=== PATIENT | female | born 1995 | race African-American/Black ===

== ENCOUNTER 2018-03-25 18:18 | Emergency (ER) | payer SELFPAY ==
--- NOTE | 2018-03-25 19:28 | ER Document Report ---
ED Medical Screen (RME) - General Chief Complaint: Abdominal Pain Stated Complaint: ABDOMINAL PAIN Time Seen by Provider: 03/25/18 19:17 Notes: RAPID MEDICAL EVALUATION DISCLOSURE I have seen this patient as part of a Rapid Medical Evaluation and, if applicable, placed any initially appropriate orders. The patient will be seen and fully evaluated, including a full history and physical exam, by a provider ( in Main ED or Fast Track) when a room becomes available. 23-year-old female here with complaints of lower abdominal pain and nausea ongoing for the past few days as well as left lower back pain worse with movement and improved with minimizing movement. The low back pain radiates down her left leg and is consistent with the daily sciatica that she has had for the last 3 years. She reports that it feels like she has to use the bathroom frequently and that she may have a UTI but denies dysuria. EXAM Suprapubic TTP Left sciatic notch TTP Left paralumbar muscl TTP TRAVEL OUTSIDE OF THE [place] IN LAST 30 DAYS: No - Related Data Allergies/Adverse Reactions: acetaminophen [From Vicodin] Allergy (Verified 03/25/18 18:21) hydrocodone [From Vicodin] Allergy (Verified 03/25/18 18:21) Past Medical History - Social History Frequency of alcohol use: None Renal/ Medical History: Denies: Hx Peritoneal Dialysis Physical Exam - Vital signs Vitals: Temp Pulse Resp BP Pulse Ox 98.7 F 83 18 118/74 98 03/25/18 18:23 03/25/18 18:23 03/25/18 18:23 03/25/18 18:23 03/25/18 18:23 Course - Vital Signs Vital signs: Temp Pulse Resp BP Pulse Ox 98.7 F 83 18 118/74 98 03/25/18 18:23 03/25/18 18:23 03/25/18 18:23 03/25/18 18:23 03/25/18 18:23
[2018-03-25 20:22] LABS: APPEARANCE,URINE SLIGHTLY-CLOUDY; BILIRUBIN,URINE NEGATIVE (NEGATIVE); COLOR,URINE YELLOW; GLUCOSE, URINE NEGATIVE (NEGATIVE); KETONES,URINE NEGATIVE (NEGATIVE); LEUKOCYTE ESTERASE,URINE LARGE (NEGATIVE); NITRITE,URINE NEGATIVE (NEGATIVE); PROTEIN,URINE NEGATIVE (NEGATIVE); URINE SPECIFIC GRAVITY 1.019; UROBILINOGEN,URINE NEGATIVE mg/dL (<2.0)
[2018-03-25] MEDS ORDERED: CEPHALEXIN 500 MG CAPSULE PO ONE (20:32)
[2018-03-25] MEDS ORDERED: OXYCODONE-ACETAMINOPHEN 5-325 MG TABLET PO ONE (20:32)
[2018-03-25] MEDS ORDERED: PHENAZOPYRIDINE HCL 200 MG TABLET PO ONE (20:32)
--- NOTE | 2018-03-25 20:36 | ER Document Report ---
HPI - HPI Patient complains to provider of: Low back pain, urinary symptoms Onset: Other - 2 days Onset/Duration: Persistent Quality of pain: Achy Pain Level: 5 Context: Patient states she is here visiting from out of town. Patient complains of a flareup of her chronic sciatica over the past few days. Patient also reports lower abdominal pain with urinary frequency. Patient does report diarrhea 6 episodes. Patient denies any fever, nausea or vomiting. Patient does return home in 4 days. Patient states that she may have eaten foods that she is not used to which is triggering her diarrhea. Associated Symptoms: Diarrhea, Other - Low back pain, urinary frequency. denies : Fever, Nausea, Vomiting Exacerbated by: Movement Relieved by: Denies Similar symptoms previously: Yes Recently seen / treated by doctor: No - ROS ROS below otherwise negative: Yes Systems Reviewed and Negative: Yes All other systems reviewed and negative - CONSTITUTIONAL Constitutional: DENIES: Fever - CARDIOVASCULAR Cardiovascular: DENIES: Chest pain - RESPIRATORY Respiratory: DENIES: Trouble Breathing - GASTROINTESTINAL Gastrointestinal: REPORTS: Abdominal Pain, Diarrhea. DENIES: Nausea, Patient vomiting - URINARY Urinary: REPORTS: Dysuria, Frequency - REPRODUCTIVE LMP: 02/28/18 - MUSCULOSKELETAL Musculoskeletal: REPORTS: Back Pain. DENIES: Extremity pain - DERM Skin Color: Normal Skin Problems: None Past Medical History - General Information source: Patient - Social History Smoking Status: Current Every Day Smoker Smoking Education Provided: Yes Frequency of alcohol use: None Drug Abuse: None Occupation: technology teacher Family History: Reviewed & Not Pertinent Patient has suicidal ideation: No Patient has homicidal ideation: No Pulmonary Medical History: Reports: Hx Asthma Renal/ Medical History: Reports: Hx Ovarian Cysts. Denies: Hx Peritoneal Dialysis Musculoskeltal Medical History: Reports Other - Sciatica Past Surgical History: Reports: Hx Section, Hx Cholecystectomy Vertical Provider Document - CONSTITUTIONAL Agree With Documented VS: Yes Exam Limitations: No Limitations General Appearance: WD/WN, No Apparent Distress - INFECTION CONTROL TRAVEL OUTSIDE OF THE [place] IN LAST 30 DAYS: No - HEENT HEENT: Atraumatic, Normocephalic - NECK Neck: Normal Inspection - RESPIRATORY Respiratory: Breath Sounds Normal, No Respiratory Distress - CARDIOVASCULAR Cardiovascular: Regular Rate, Regular Rhythm - GI/ABDOMEN Gastrointestinal: Abdomen Soft, Abdomen Tender - BACK Back: Abnormal Inspection - Suprapubic left lumbar paraspinal tenderness, left sciatic notch tenderness.. negative: CVA Tenderness-Right, CVA Tenderness-Left Notes: No midline tenderness, step-off or deformity - MUSCULOSKELETAL/EXTREMETIES Musculoskeletal/Extremeties: MAEW, FROM, Non-Tender - NEURO Level of Consciousness: Awake, Alert, Appropriate Motor/Sensory: No Motor Deficit Notes: No footdrop, no saddle anesthesia - DERM Integumentary: Warm, Dry, No Rash Course - Re-evaluation Re-evalutation: 03/25/18 20:33 The patient presents with low back pain without signs of spinal cord compression , cauda equina syndrome, infection, aneurysm, or other serious etiology. The patient is neurologically intact. Given the extremely risk of these diagnoses further testing and evaluation for these possibilities does not appear to be indicated at this time. Patient has been instructed to return if the symptoms worsen or change in any way. - Vital Signs Vital signs: Temp Pulse Resp BP Pulse Ox 98.7 F 83 18 118/74 98 03/25/18 18:23 03/25/18 18:23 03/25/18 18:23 03/25/18 18:23 03/25/18 18:23 - Laboratory Laboratory results interpreted by me: 03/25/18 19:28 Urine Blood MODERATE H Ur Leukocyte Esterase LARGE H Discharge - Discharge Clinical Impression: UTI (urinary tract infection) Qualifiers: Urinary tract infection type: site unspecified Hematuria presence: with hematuria Qualified Code(s): N39.0 - Urinary tract infection, site not specified Sciatica Qualifiers: Laterality: left Qualified Code(s): M54.32 - Sciatica, left side Diarrhea Qualifiers: Diarrhea type: unspecified type Qualified Code(s): R19.7 - Diarrhea, unspecified Condition: Stable Disposition: HOME, SELF-CARE Instructions: Cephalexin ([facility]), Diarrhea, Nonspecific ([facility]), Sciatica ([facility]), Urinary Anesthetic Agent ([facility]), Urinary Tract Infection ([facility]) Additional Instructions: Return immediately for any new or worsening symptoms Followup with your primary care provider, call tomorrow to make a followup appointment Prescriptions: Cephalexin Monohydrate [Keflex 500 mg Capsule] 500 mg PO Q6H 7 Days capsule Cyclobenzaprine HCl [Flexeril 10 Mg Tablet] 10 mg PO TID #15 tablet Oxycodone HCl/Acetaminophen [Percocet 5-325 mg Tablet] 1 tab PO ASDIR PRN #15 tablet PRN Reason: Phenazopyridine HCl [Pyridium 200 mg Tablet] 200 mg PO TID #15 tablet Forms: Smoking Cessation Education Referrals: [facility] [Provider Group] - Follow up as needed
[2018-03-25 21:01] VITALS: BP 118/70
== END 2018-03-25 21:00 | disposition home or self-care (01) ==
LOC: ER 18:18
DX: N39.0 Urinary tract infection, site not specified (principal); M54.32 Sciatica, left side; R19.7 Diarrhea, unspecified; M54.5 Low back pain; F17.210 Nicotine dependence, cigarettes, uncomplicated
CPT/HCPCS: 99283; 87086; 81025; 87088; 81001; 87186; J3490

== ENCOUNTER 2019-10-17 22:50 | Emergency (ER) | payer OTHER ==
--- NOTE | 2019-10-17 23:45 | ER Document Report ---
ED Medical Screen (RME) - General Chief Complaint: Pelvic Pain Stated Complaint: ABDOMINAL PAIN Time Seen by Provider: 10/17/19 23:42 Notes: HPI: 24-year-old female presenting for left pelvic pain for 2 weeks. Patient also reports vaginal discharge and odor for 2 weeks. Patient is concerned she has vaginitis. Patient is concerned she might have an ovarian cyst. No fever. Has had some intermittent nausea or vomiting at times. Reports a sensation of urinary urgency and discomfort. Denies back pain. Denies upper abdominal pain. Patient states that she believes she has had pelvic symptoms off and on for the last 4 months since she had an IUD removed by her SHOW DOG TRAINER who is not local I have greeted and performed a rapid initial assessment of this patient. A comprehensive ED assessment and evaluation of the patient, analysis of test results and completion of the medical decision making process will be conducted by additional ED providers PHYSICAL EXAMINATION: GENERAL: Well-appearing, well-nourished and in no acute distress. HEAD: Atraumatic, normocephalic. EYES: sclera anicteric, conjunctiva are normal. ENT: Moist mucous membranes. NECK: Normal range of motion LUNGS: Normal work of breathing HEART: 2+ radial pulses bilaterally ABD: limited by positioning for exam in triage. Mild tenderness low in the left pelvis on palpation EXTREMITIES: no pitting or edema. No cyanosis. NEUROLOGICAL: No focal neurological deficits. Moves all extremities spontaneously and on command. PSYCH: Normal mood, normal affect. SKIN: Warm, Dry, normal turgor, no rashes or lesions noted. TRAVEL OUTSIDE OF THE [place] IN LAST 30 DAYS: No - Related Data Allergies/Adverse Reactions: acetaminophen [From Vicodin] Allergy (Verified 03/25/18 18:21) hydrocodone [From Vicodin] Allergy (Verified 03/25/18 18:21) Past Medical History Pulmonary Medical History: Reports: Hx Asthma Renal/ Medical History: Reports: Hx Ovarian Cysts. Denies: Hx Peritoneal Dialysis Past Surgical History: Reports: Hx Section, Hx Cholecystectomy Physical Exam - Vital signs Vitals: Temp Pulse Resp BP Pulse Ox 98.5 F 73 16 136/63 H 99 10/17/19 23:13 10/17/19 23:13 10/17/19 23:13 10/17/19 23:13 10/17/19 23:13 Course - Vital Signs Vital signs: Temp Pulse Resp BP Pulse Ox 98.5 F 73 16 136/63 H 99 10/17/19 23:13 10/17/19 23:13 10/17/19 23:13 10/17/19 23:13 10/17/19 23:13
[2019-10-18 00:21] LABS: ABSOLUTE BASOPHILS # (AUTO) 0.1 10^3/uL (0.0-0.2); ABSOLUTE EOSINOPHILS # (AUTO) 0.5 10^3/uL (0.0-0.6); ABSOLUTE LYMPHOCYTES (AUTO) 4.9 10^3/uL (0.5-4.7); ABSOLUTE MONOCYTES (AUTO) 0.6 10^3/uL (0.1-1.4); ABSOLUTE NEUT (AUTO) 3.9 10^3/uL (1.7-8.2); BASOPHILS % (AUTO) 1.2 % (0-2); EOSINOPHILS % (AUTO) 5.3 % (0-6); HEMATOCRIT 39.4 % (36.0-47.0); HEMOGLOBIN 12.9 g/dL (12.0-15.5); MEAN CORPUSCULAR HEMOGLOBIN 28.5 pg (27.0-33.4); MEAN CORPUSCULAR HGB CONC 32.7 g/dL (32.0-36.0); MEAN CORPUSCULAR VOLUME 87 fl (80-97); MONOCYTES % (AUTO) 5.7 % (3-13); PLATELET COUNT 303 10^3/uL (150-450); RED BLOOD COUNT 4.52 10^6/uL (3.72-5.28); RED CELL DISTRIBUTION WIDTH 12.8 % (11.5-14.0); SEGMENTED NEUTROPHILS % (AUTO) 38.8 % (42-78); TOTAL CELLS COUNTED % (AUTO) 100 %; WHITE BLOOD COUNT 9.9 10^3/uL (4.0-10.5)
[2019-10-18 00:24] LABS: APPEARANCE,URINE CLEAR; BILIRUBIN,URINE NEGATIVE (NEGATIVE); COLOR,URINE YELLOW; GLUCOSE, URINE NEGATIVE (NEGATIVE); KETONES,URINE NEGATIVE (NEGATIVE); LEUKOCYTE ESTERASE,URINE NEGATIVE (NEGATIVE); NITRITE,URINE NEGATIVE (NEGATIVE); PROTEIN,URINE 30 mg/dL (NEGATIVE); URINE SPECIFIC GRAVITY 1.028
[2019-10-18 00:39] LABS: ALBUMIN 3.9 g/dL (3.5-5.0); ALKALINE PHOSPHATASE 88 U/L (38-126); ANION GAP 5 (5-19); ASPARTATE AMINO TRANSFERASE 26 U/L (14-36); BILIRUBIN,TOTAL 0.4 mg/dL (0.2-1.3); BLOOD UREA NITROGEN 11 mg/dL (7-20); CALCIUM 9.9 mg/dL (8.4-10.2); CARBON DIOXIDE 28 mmol/L (22-30); CHLORIDE 105 mmol/L (98-107); GLUCOSE 88 mg/dL (75-110); POTASSIUM 4.6 mmol/L (3.6-5.0); TOTAL PROTEIN 7.6 g/dL (6.3-8.2)
--- NOTE | 2019-10-18 01:37 | RADIOLOGY REPORT (SQ) ---
EXAM DESCRIPTION: US PELVIS TRANSVAGINAL COMPLETED DATE/TME: 10/17/2019 23:43 CLINICAL HISTORY: 24 years Female, left pelvic pain Comparison: None. Technique: Transvaginal. LIMITATIONS: None. FINDINGS: 10.6-cm uterus partially obscured, 0.5-cm endometrial stripe thickness, 2.7-cm right ovary, and 2.7-cm left ovary appear otherwise unremarkable in size, shape, echotexture, and vascularity. Minimal free cul-de-sac fluid. IMPRESSION: No acute findings. Limitation.
[2019-10-18] MEDS ORDERED: OXYCODONE-ACETAMINOPHEN 5-325 MG TABLET PO ONE (02:37)
--- NOTE | 2019-10-18 02:40 | ER Document Report ---
ED GI/ - General Chief Complaint: Pelvic Pain Stated Complaint: ABDOMINAL PAIN Time Seen by Provider: 10/17/19 23:42 Notes: Patient is a 24-year-old female that comes to the emergency department for chief complaint of intermittent pelvic pain worse on the left side, she states this is been going on for the past couple of weeks. She reports some vaginal discharge, denies vaginal bleeding. She denies dysuria. She denies fever, vomiting. She is sexually active. She denies any daily medications. She has had a cholecystectomy and , denies medical history otherwise. TRAVEL OUTSIDE OF THE [place] IN LAST 30 DAYS: No - Related Data Allergies/Adverse Reactions: acetaminophen [From Vicodin] Allergy (Verified 03/25/18 18:21) hydrocodone [From Vicodin] Allergy (Verified 03/25/18 18:21) Past Medical History - General Information source: Patient - Social History Smoking Status: Current Every Day Smoker Frequency of alcohol use: None Drug Abuse: None Lives with: Family Family History: Reviewed & Not Pertinent Patient has suicidal ideation: No Patient has homicidal ideation: No Pulmonary Medical History: Reports: Hx Asthma Renal/ Medical History: Reports: Hx Ovarian Cysts. Denies: Hx Peritoneal Dialysis Past Surgical History: Reports: Hx Section, Hx Cholecystectomy Review of Systems - Review of Systems Constitutional: No symptoms reported EENT: No symptoms reported Cardiovascular: No symptoms reported Respiratory: No symptoms reported Gastrointestinal: See HPI Genitourinary: See HPI Female Genitourinary: See HPI Musculoskeletal: No symptoms reported Skin: No symptoms reported Hematologic/Lymphatic: No symptoms reported Neurological/Psychological: No symptoms reported Physical Exam - Vital signs Vitals: Temp Pulse Resp BP Pulse Ox 98.5 F 73 16 136/63 H 99 10/17/19 23:13 10/17/19 23:13 10/17/19 23:13 10/17/19 23:13 10/17/19 23:13 - Notes Notes: GENERAL: Alert, interacts well. No acute distress. HEAD: Normocephalic, atraumatic. EYES: Pupils equal, round, and reactive to light. Extraocular movements intact. ENT: Oral mucosa moist, tongue midline. Oropharynx unremarkable. Airway patent. LUNGS: Clear to auscultation bilaterally, no wheezes, rales, or rhonchi. No respiratory distress. HEART: Regular rate and rhythm. No murmur ABDOMEN: Very mild generalized tenderness of the lower abdomen/pelvis. No specific area of tenderness or guarding. Upper abdomen benign GENITOURINARY: Moderately large amount of whitish-yellowish discharge, some erythema of the cervix, no overt cervical motion tenderness. External exam unremarkable. Exam performed with Carlota RN at bedside EXTREMITIES: Moves all 4 extremities spontaneously. No edema, normal radial and dorsalis pedis pulses bilaterally. No cyanosis. BACK: no cervical, thoracic, lumbar midline tenderness. No saddle anesthesia, normal distal neurovascular exam. Moves all extremities in full range of motion. NEUROLOGICAL: Alert and oriented x3. Normal speech. Cranial nerves II through XII grossly intact. PSYCH: Normal affect, normal mood. SKIN: Warm, dry, normal turgor. No rashes or lesions noted. Course - Re-evaluation Re-evalutation: Patient has some generalized tenderness of the lower abdomen/pelvis. On pelvic exam she has moderate to large amount of yellowish discharge with some erythema of the cervix but no overt cervical motion tenderness. Urinalysis unremarkable, CBC, chemistry unremarkable, ultrasound from triage reviewed and unremarkable except for some free fluid. I suspect patient symptoms are from a pelvic infection. Discussed options, she will be treated for this, treated for bacterial vaginosis component as well, discussed primary care follow-up and return precautions. Patient states appreciation and agreement. Stable and well-appearing at time of discharge. - Vital Signs Vital signs: Temp Pulse Resp BP Pulse Ox 97.8 F 76 16 137/76 H 100 10/18/19 04:23 10/18/19 04:23 10/18/19 04:23 10/18/19 04:23 10/18/19 04:23 - Laboratory Result Diagrams: 10/18/19 00:05 10/18/19 00:05 Laboratory results interpreted by me: 10/17/19 10/18/19 23:45 00:05 Lymph % (Auto) 49.0 H Absolute Lymphs (auto) 4.9 H Seg Neutrophils % 38.8 L Urine Protein 30 H Urine Urobilinogen 2.0 H Discharge - Discharge Clinical Impression: Pelvic pain, Vaginal discharge Condition: Stable Disposition: HOME, SELF-CARE Additional Instructions: Your ultrasound and blood labs do not show any concerning findings. Your exam and work-up do indicate a pelvic infection and bacterial vaginosis. Complete treatment by taking the Flagyl at home. Follow-up with primary care for additional management. Return if you worsen including fever, vomiting, severe worsening pain, or any other concerning symptoms. Prescriptions: Metronidazole [Flagyl 500 mg Tablet] 500 mg PO BID 7 Days #14 tablet Forms: Return to Work
[2019-10-18 03:13] LABS: BACTERIA (WET MOUNT) 3+ BACTERIA SEEN; EPITHELIALS (WET MOUNT) 3+ EPITHELIALS SEEN; RBCS (WET MOUNT) FEW RBCS SEEN; T.VAGINALIS (WET MOUNT) NO TRICHOMONAS SEEN; WBCS (WET MOUNT) FEW WBCS SEEN; YEAST (WET MOUNT) NO YEAST SEEN
[2019-10-18] MEDS ORDERED: AZITHROMYCIN 250 MG TABLET PO ONE (03:46)
[2019-10-18] MEDS ORDERED: LIDOCAINE 1% INJ-PF (10 MG/ML) 30 ML SDV INJ ONE (03:46)
[2019-10-18] MEDS ORDERED: CEFTRIAXONE INJ 250 MG VIAL IM ONE (03:46)
[2019-10-18] MEDS ORDERED: PROMETHAZINE HCL 25 MG TABLET PO ONE (03:47)
[2019-10-18 04:24] VITALS: BP 137/76
[2019-10-18 04:39] LABS: CHLAM PCR NOT DETECTED (NOT DETECT)
== END 2019-10-18 04:24 | disposition home or self-care (01) ==
LOC: ER 22:50
DX: R10.2 Pelvic and perineal pain (principal); N89.8 Other specified noninflammatory disorders of vagina; R10.817 Generalized abdominal tenderness; F17.200 Nicotine dependence, unspecified, uncomplicated; Z88.6 Allergy status to analgesic agent; Z90.49 Acquired absence of other specified parts of digestive tract
CPT/HCPCS: 99284; 96372; 36415; 87210; 84703; 85025; 80053; 81001; 87491; 87591; 76830; 93976; J3490; J0696

== ENCOUNTER 2020-07-25 11:01 | Emergency (ER) | payer MEDICAID, OTHER ==
[2020-07-25] MEDS ORDERED: IPRATROPIUM/ALBUTEROL 0.5-2.5 MG/3 ML AMPUL NEB ONE ×2 (11:51→13:47)
[2020-07-25] MEDS ORDERED: PREDNISONE 20 MG TABLET PO ONE (11:51)
--- NOTE | 2020-07-25 11:53 | ER Document Report ---
ED Medical Screen (RME) - General Stated Complaint: POSSIBLE ASTHMA ATTACK Time Seen by Provider: 07/25/20 11:47 Mode of Arrival: Ambulatory Information source: Patient Notes: Patient presents with diffuse wheezing bilaterally. Patient states she has a history of asthma and used her rescue inhaler today without improvement of her symptoms. Patient states that she used to have a nebulizer although does not have it anymore at home. Patient denies any fever. Patient states that cough has been nonproductive. Patient reports cough started today with what she suspects to be an asthma attack. I have greeted and performed a rapid initial assessment of this patient. A comprehensive ED assessment and evaluation of the patient, analysis of test results and completion of the medical decision making process will be conducted by additional ED providers. TRAVEL OUTSIDE OF THE [place] IN LAST 30 DAYS: No - Related Data Allergies/Adverse Reactions: acetaminophen [From Vicodin] Allergy (Verified 03/25/18 18:21) hydrocodone [From Vicodin] Allergy (Verified 03/25/18 18:21) Past Medical History Pulmonary Medical History: Reports: Hx Asthma Renal/ Medical History: Reports: Hx Ovarian Cysts. Denies: Hx Peritoneal Dialysis Past Surgical History: Reports: Hx Section, Hx Cholecystectomy Physical Exam - Vital signs Vitals: Temp Pulse Resp BP Pulse Ox 98.1 F 91 20 149/68 H 97 07/25/20 11:36 07/25/20 11:36 07/25/20 11:36 07/25/20 11:36 07/25/20 11:36 - Respiratory Respiratory status: No respiratory distress Breath sounds: Nonproductive cough, Wheezing - Diffuse wheezing bilaterally Course - Vital Signs Vital signs: Temp Pulse Resp BP Pulse Ox 98.1 F 91 20 149/68 H 97 07/25/20 11:36 07/25/20 11:36 07/25/20 11:36 07/25/20 11:36 07/25/20 11:36
--- NOTE | 2020-07-25 12:14 | RADIOLOGY REPORT (SQ) ---
EXAM DESCRIPTION: CHEST 2 VIEWS IMAGES COMPLETED DATE/TIME: 07/25/2020 12:05 pm REASON FOR STUDY: cough, diff breathing COMPARISON: None. EXAM PARAMETERS: NUMBER OF VIEWS: two views TECHNIQUE: Digital Frontal and Lateral radiographic views of the chest acquired. RADIATION DOSE: NA LIMITATIONS: none FINDINGS: LUNGS AND PLEURA: No opacities, masses or pneumothorax. No pleural effusion. MEDIASTINUM AND HILAR STRUCTURES: No masses or contour abnormalities. HEART AND VASCULAR STRUCTURES: Heart normal size. No evidence for failure. BONES: No acute findings. HARDWARE: None in the chest. OTHER: No other significant finding. IMPRESSION: NO ACUTE RADIOGRAPHIC FINDING IN THE CHEST. TECHNICAL DOCUMENTATION: JOB ID: [id number] 2010 [employer]- All Rights Reserved Reading location - IP/workstation name: [email or web address]
[2020-07-25] MEDS: ALBUTEROL SULFATE 0.083% NEB 2.5 MG/3 ML AMPUL NEB SCH ×2 (12:23→12:24)
--- NOTE | 2020-07-25 12:43 | ER Document Report ---
ED Respiratory Problem - General Chief Complaint: Asthma Exacerbation Stated Complaint: POSSIBLE ASTHMA ATTACK Time Seen by Provider: 07/25/20 11:47 Mode of Arrival: Ambulatory Information source: Patient Notes: 07/25/20 11:48 - ED Nursing Note by MOON JARAMILLO Num: [id number] : 1995 Patient Age: 25 Pt presents to ED for a possible asthma attack. Pt woke up this morning w/ SOB and cough. Nonproductive cough. The pt used her inhaler w/o relief. No fever/chills. No sick contact. No recent travel. The pt is aox4. ED Medical Screen (Linnea montemayor) - General Stated Complaint: POSSIBLE ASTHMA ATTACK Time Seen by Provider: 07/25/20 11:47 Mode of Arrival: Ambulatory Information source: Patient Notes: Patient presents with diffuse wheezing bilaterally. Patient states she has a history of asthma and used her rescue inhaler today without improvement of her symptoms. Patient states that she used to have a nebulizer although does not have it anymore at home. Patient denies any fever. Patient states that cough has been nonproductive. Patient reports cough started today with what she suspects to be an asthma attack. I have greeted and performed a rapid initial assessment of this patient. A comprehensive ED assessment and evaluation of the patient, analysis of test results and completion of the medical decision making process will be conducted by additional ED providers. TRAVEL OUTSIDE OF THE [place] IN LAST 30 DAYS: No - Related Data Allergies/Adverse Reactions: acetaminophen [From Vicodin] Allergy (Verified 03/25/18 18:21) hydrocodone [From Vicodin] Allergy (Verified 03/25/18 18:21) Past Medical History Pulmonary Medical History: Reports: Hx Asthma Renal/ Medical History: Reports: Hx Ovarian Cysts. Denies: Hx Peritoneal Dialysis Past Surgical History: Reports: Hx Section, Hx Cholecystectomy Physical Exam - Vital signs Vitals: Temp Pulse Resp BP Pulse Ox 98.1 F 91 20 149/68 H 97 07/25/20 11:36 07/25/20 11:36 07/25/20 11:36 07/25/20 11:36 07/25/20 11:36 - Respiratory Respiratory status: No respiratory distress Breath sounds: Nonproductive cough, Wheezing - Diffuse wheezing bilaterally MY NOTES 25-year-old female with chief complaint of asthma attack; this acutely occurred this morning as she awoke. 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 Patient denies any allergy to pet dander and denies any exposure to goldenrod or to other materials. She reports she has not had a asthma attack since she was a teenager. Patient denies any COVID-19 exposure. Patient denies any sinus problems nuchal rigidity productive phlegm. She does admit to the sore throat since she has been coughing all morning. TRAVEL OUTSIDE OF THE [place] IN LAST 30 DAYS: No - HPI Patient complains to provider of: Asthma, Short of breath Onset: This morning Duration: Better Quality of pain: No pain Severity: Mild Pain Level: 1 Short of Breath: Mild Cough: Nonproductive - Related Data Allergies/Adverse Reactions: acetaminophen [From Vicodin] Allergy (Verified 03/25/18 18:21) hydrocodone [From Vicodin] Allergy (Verified 03/25/18 18:21) Past Medical History - General Information source: Patient - Social History Smoking Status: Current Every Day Smoker Cigarette use (# per day): Yes Chew tobacco use (# tins/day): No Smoking Education Provided: Yes Frequency of alcohol use: None Drug Abuse: None Lives with: Family Family History: Reviewed & Not Pertinent Patient has suicidal ideation: No Patient has homicidal ideation: No Pulmonary Medical History: Reports: Hx Asthma Renal/ Medical History: Reports: Hx Ovarian Cysts. Denies: Hx Peritoneal Dialysis Past Surgical History: Reports: Hx Section, Hx Cholecystectomy Review of Systems - Review of Systems Constitutional: See HPI, Recent illness EENT: No symptoms reported Cardiovascular: No symptoms reported Respiratory: See HPI, Cough, Hurts to breathe Gastrointestinal: No symptoms reported Genitourinary: No symptoms reported Female Genitourinary: No symptoms reported Musculoskeletal: No symptoms reported Skin: No symptoms reported Hematologic/Lymphatic: No symptoms reported Neurological/Psychological: No symptoms reported -: Yes All other systems reviewed and negative Physical Exam - Vital signs Vitals: Temp Pulse Resp BP Pulse Ox 98.1 F 91 20 149/68 H 97 07/25/20 11:36 07/25/20 11:36 07/25/20 11:36 07/25/20 11:36 07/25/20 11:36 Interpretation: Normal - General General appearance: Appears well, Alert - HEENT Head: Normocephalic, Atraumatic Eyes: Normal Pupils: PERRL - Respiratory Respiratory status: Respiratory distress Chest status: Nontender Breath sounds: Wheezing Chest palpation: Normal - Cardiovascular Rhythm: Regular Heart sounds: Normal auscultation Murmur: No - Abdominal Inspection: Normal Distension: No distension Bowel sounds: Normal Tenderness: Nontender Organomegaly: No organomegaly - Rectal Hemorrhoids: Other - Deferred - Genitourinary Bimanuel exam: Other - Deferred - Back Back: Normal, Nontender - Extremities General upper extremity: Normal inspection, Nontender, Normal color, Normal ROM, Normal temperature General lower extremity: Normal inspection, Nontender, Normal color, Normal ROM, Normal temperature, Normal weight bearing. No: Ronnie's sign - Neurological Neuro grossly intact: Yes Cognition: Normal Orientation: AAOx4 Funmi Coma Scale Eye Opening: Spontaneous Fumni Coma Scale Verbal: Oriented Funmi Coma Scale Motor: Obeys Commands Funmi Coma Scale Total: 15 Speech: Normal Motor strength normal: LUE, RUE, LLE, RLE Sensory: Normal - Psychological Associated symptoms: Normal affect, Normal mood - Skin Skin Temperature: Warm Skin Moisture: Dry Skin Color: Normal Course - Vital Signs Vital signs: Temp Pulse Resp BP Pulse Ox 98.1 F 91 20 149/68 H 97 07/25/20 11:36 07/25/20 11:36 07/25/20 11:36 07/25/20 11:36 07/25/20 11:36 - Diagnostic Test Radiology reviewed: Reports reviewed Critical Care Note - Critical Care Note Comments: Patient had received steroids and breathing treatment prior to my arrival and is continued to have mild respiratory distress with wheezing on expiration. She was therefore ordered another breathing treatment and a Covid 19 test. Discharge - Discharge Clinical Impression: COVID-19 virus test result unknown Asthmatic bronchitis Qualifiers: Asthma severity: mild Asthma persistence: intermittent Asthma complication type: uncomplicated Qualified Code(s): J45.20 - Mild intermittent asthma, uncomplicated Condition: Stable Disposition: HOME, SELF-CARE Additional Instructions: Try to stay quarantined until your COVID-19 test returns in approximately 48 hours. Return to ER as needed take medicines as directed encourage fluids. Avoid working until COVID-19 test returns. Use breathing treatments as needed. Use steroids as directed. Take antibiotics as directed. May take Pepcid 1 tablet twice a day Prescriptions: Dexamethasone [Decadron 4 Mg Tablet] 4 mg PO DAILY #5 tablet Famotidine [Pepcid 20 mg Tablet] 20 mg PO BID #12 tablet Albuterol Sulfate [Proair HFA Inhalation Aerosol 8.5 gm MDI] 2 puff IH Q4H PRN #1 mdi PRN Reason: Azithromycin [Zithromax 250 mg Tablet] 250 mg PO ASDIR PRN #6 tablet PRN Reason: Forms: Return to Work
[2020-07-25 15:10] VITALS: BP 132/55
== END 2020-07-25 15:11 | disposition home or self-care (01) ==
LOC: ER 11:01
DX: J45.20 Mild intermittent asthma, uncomplicated (principal); R06.02 Shortness of breath; R05 Cough; Z20.828 Contact with and (suspected) exposure to other viral communicable diseases
CPT/HCPCS: 94640 ×2; 99284; 87635; 71046; J7512; J7613; C9803